=== PATIENT | male | born 1960 | race Caucasian/White ===

== ENCOUNTER 2023-06-24 15:44 | Emergency (ER) | payer BC ==
[~2023-06-24] VITALS: Ht 167.6 cm; Wt 70.3 kg
[2023-06-24] MEDS ORDERED: BUPR1FIL19 SL (16:33)
[2023-06-24] MEDS ORDERED: DIAZ10TA4 PO (16:33)
[2023-06-24] MEDS ORDERED: BICT1TAB PO (16:34)
[2023-06-24 19:48] LABS: BASOPHILS # (AUTO) 0.1 K/UL (0.0-0.2); BASOPHILS % (AUTO) 0.7 % (0.0-2.0); EOSINOPHILS # (AUTO) 0.6 K/uL (0.0-0.7); EOSINOPHILS % (AUTO) 7.6 % (0.0-7.0); HEMATOCRIT 39.6 % (36.7-47.1); HEMOGLOBIN 13.4 g/dL (12.5-16.3); LYMPHOCYTES # (AUTO) 3.1 K/uL (0.8-4.8); LYMPHOCYTES % (AUTO) 36.9 % (20.5-51.5); MEAN CORPUSCULAR HEMOGLOBIN 33.3 uug (23.8-33.4); MEAN CORPUSCULAR HGB CONC 34 g/dL (32.5-36.3); MEAN CORPUSCULAR VOLUME 98.3 fL (73.0-96.2); MONOCYTES # (AUTO) 0.6 K/uL (0.1-1.30); MONOCYTES % (AUTO) 7.5 % (0.0-11.0); NEUTROPHILS # (AUTO) 3.9 K/uL (1.8-8.9); NEUTROPHILS % (AUTO) 47.3 % (38.5-71.5); PLATELET COUNT (AUTO) 332 K/uL (152-348); RED BLOOD CELL COUNT(AUTO) 4.03 MIL/uL (4.06-5.63); RED CELL DISTRIBUTION WIDTH 12.3 % (12.1-16.2); WHITE BLOOD COUNT (AUTO) 8.3 K/uL (3.6-10.2)
[2023-06-24 19:56] LABS: DIFFERENTIAL COMMENT 1
[2023-06-24 20:16] LABS: ALANINE AMINOTRANSFERASE 39 U/L (16-63); ALBUMIN 3.7 g/dL (3.4-5.0); ALKALINE PHOSPHATASE 82 U/L (50-136); ASPARTATE AMINOTRANSFERASE 23 U/L (15-37); BILIRUBIN,DIRECT 0.1 mg/dL (0.0-0.2); BILIRUBIN,TOTAL 0.2 mg/dL (0.2-1.0); CALCIUM 9.4 mg/dL (8.5-10.1); CARBON DIOXIDE 28 mmol/L (21-32); CHLORIDE 100 mmol/L (98-107); CREATININE 1.2 mg/dL (0.6-1.3); GLUCOSE 89 mg/dL (74-106); NT-PRO BNP 277 pg/mL (0-125); POTASSIUM 4.2 mmol/L (3.5-5.1); SODIUM SERUM 137 mmol/L (136-145); TOTAL PROTEIN, SERUM 7.4 g/dL (6.4-8.2); UREA NITROGEN, BLOOD 23 mg/dL (7-18)
[2023-06-24] MEDS ORDERED: FURO-152 PO (21:25)
[2023-06-24 21:30] VITALS: BP 145/89; TEMP 97.8; O2SAT 97
== END 2023-06-24 21:30 | disposition home or self-care (01) ==
LOC: ER 15:48
DX: R60.0 Localized edema (principal); R07.89 Other chest pain; Z79.899 Other long term (current) drug therapy
CPT/HCPCS: 36415; 71045; 84484; 85025; 93005; A4606; A4663